=== PATIENT | male | born 1995 | race Caucasian/White ===

== ENCOUNTER 2022-04-07 16:14 | Emergency (ER) | payer BC ==
[~2022-04-07] VITALS: Ht 167.6 cm; Wt 72.6 kg
[2022-04-07] MEDS ORDERED: Zoloft50 MG PO (18:33)
== END 2022-04-07 18:42 | disposition home or self-care (01) ==
LOC: ER 16:14
DX: F32.A Depression, unspecified (principal)
CPT/HCPCS: 99283